=== PATIENT | male | born 1980 | race Caucasian/White ===

== ENCOUNTER 2019-02-18 12:41 | Emergency (ER) | payer SELFPAY ==
[2013-06-16 13:00] VITALS: BP 133/68
[2019-02-18] MEDS ORDERED: KETOROLAC TROMETHAMINE 60 MG/2 ML VIAL IM ONE (13:35)
--- NOTE | 2019-03-13 11:13 | Diagnostic Imaging Report ---
WELL[place] FARAH [facility] [id number] [facility] [address] [address] Report Submission Date: Feb 18, 2019 1:29:07 PM CDT Patient Study Name: ELA COOK Date: Feb 18, 2019 1:00:40 PM CDT Modality Type: DX Gender: M Description: KNEE 3 VIEWS : 76 Institution: [facility] Physician: WELL[place] FARAH Left knee 3 views Date of Exam: February 18, 2019. History: MEDIAL LEFT KNEE PAIN AFTER FALL LAST NIGHT (Hx) / Findings: No acute fracture or dislocation is identified. The patella is normal. The proximal left tibia and fibula are intact. Impression: No acute osseous abnormality. Electronically signed on Feb 18, 2019 1:29:07 PM CDT by: Jose HAGAN
== END 2019-02-18 13:53 ==
LOC: ED 12:41
DX: M25.562 Pain in left knee (principal); W19.XXXA Unspecified fall, initial encounter
CPT/HCPCS: 73562; 99282; 99283; J1885